=== PATIENT | male | born 1980 | race Caucasian/White ===

== ENCOUNTER 2024-04-20 15:07 | Emergency (ER) | payer OTHER, SELFPAY ==
[2024-04-20 15:10] VITALS: BP 159/93; PULSE 93; RESP 16; TEMP 37.1; O2SAT 96; BMI 39.3
--- NOTE | 2024-04-20 15:34 | ED.GENADULT ---
HPI - General Adult General Date Seen: 04/20/24 Chief complaint: Laceration/Wound Stated complaint: laceration Dropped Steel on foot - work comp Time Seen by Provider: 04/20/24 15:08 Source: patient Mode of arrival: ambulatory Limitations: no limitations History of Present Illness HPI narrative: Patient is a 43-year-old male who was at work, he dropped a large metal object which appears to his work boot and cut the top of his left foot. He is not sure when his last tetanus was, he thinks it has ?been a while. He has no complaints of loss of function or numbness. No bony tenderness or difficulty walking. Related Data Home Medications ?Medication ?Instructions ?Recorded ?Confirmed aspirin 81 mg tablet,delayed 81 mg PO DAILY 04/20/24 04/20/24 release (Adult Aspirin Regimen) atorvastatin 40 mg tablet 40 mg PO DAILY 04/20/24 04/20/24 benazepril 20 1 tab PO DAILY 04/20/24 04/20/24 mg-hydrochlorothiazide 25 mg tablet empagliflozin 10 mg tablet 10 mg PO DAILY 04/20/24 04/20/24 levothyroxine 150 mcg capsule 150 mcg PO DAILY 04/20/24 04/20/24 metformin 1,000 mg tablet 1,000 mg PO DAILY 04/20/24 04/20/24 metoprolol succinate 50 mg 50 mg PO DAILY 04/20/24 04/20/24 tablet,extended release 24 hr Allergies Allergy/AdvReac Type Severity Reaction Status Date / Time shrimp Allergy Severe Anaphylaxis Verified 04/20/24 15:17 latex Allergy Mild Rash Verified 04/20/24 15:17 PFSH PFS Social History Smoking Status: Never smoker How often do you have a drink containing alcohol: never AUDIT-C Alcohol total score: 0 Non-prescribed substance use: denies use service: No Exam Narrative: Exam Narrative: Vital signs reviewed In general, alert, well-appearing male. Extremities: Examination of the left foot shows a small, T shaped laceration over the dorsum of the foot. Some venous bleeding is noted. Total length of laceration is approximately 1 cm. He has full flexion extension of his toes, sensation is normal. Skin otherwise intact. No bony tenderness, bruising or swelling. Const: Vital Signs, click to edit/add: Vital Signs - 24 hr 04/20/24 15:10 Temperature 98.7 F Pulse Rate [Pulse Oximeter] 93 Respiratory Rate 16 Blood Pressure [Ri ght Upper Arm] 159/93 H Pulse Oximetry 96 Oxygen Delivery Me thod Room Air Documenting provider has reviewed patient's vital signs: yes Course Course ED Course: Procedure note: The wound was anesthetized using lidocaine with epinephrine and explored without evidence of foreign body. I used 4-[address] 3 simple interrupted superficial sutures. She tolerated this well without immediate complication. Dressing applied by the nurse. We will look in to his tetanus status and update if needed. Recommend suture removal in 7-10 days, return for signs of infection. Vital Signs Vital signs: Initial Vital Signs Temperature 98.7 F 04/20/24 15:10 Temperature Source Temporal Artery Scan 04/20/24 15:10 Pulse Rate 93 04/20/24 15:10 Pulse Rhythm Regular 04/20/24 15:10 Pulse Strength 3+ Normal 04/20/24 15:10 Respiratory Rate 16 04/20/24 15:10 Blood Pressure 159/93 H 04/20/24 15:10 Blood Pressure Mean 115 H 04/20/24 15:10 Blood Pressure Position Sitting 04/20/24 15:10 Pulse Oximetry 96 04/20/24 15:10 Oxygen Delivery Method Room Air 04/20/24 15:10 Vital Signs Temperature 98.7 F 04/20/24 15:10 Pulse Rate 93 04/20/24 15:10 Respiratory Rate 16 04/20/24 15:10 Blood Pressure 159/93 H 04/20/24 15:10 Pulse Oximetry 96 04/20/24 15:10 Oxygen Delivery Method Room Air 04/20/24 15:10 Temperature 98.7 F 04/20/24 15:10 Pulse Rate 93 04/20/24 15:10 Respiratory Rate 16 04/20/24 15:10 Blood Pressure 159/93 H 04/20/24 15:10 Pulse Oximetry 96 04/20/24 15:10 Oxygen Delivery Method Room Air 04/20/24 15:10 Discharge Plan Discharge Clinical Impression: Foot laceration Patient Disposition: Home, Self-Care Condition: Improved Instructions: Laceration (ED) Additional Instructions: Suture removal in about 7-10 days. Return any time for signs of infection. Ibuprofen or Tylenol if needed. Prescriptions: No Action aspirin [Adult Aspirin Regimen] 81 mg tablet,delayed release (DR/EC) 81 mg PO DAILY atorvastatin 40 mg tablet 40 mg PO DAILY benazepril-hydrochlorothiazide 20-25 mg tablet 1 tab PO DAILY empagliflozin 10 mg tablet 10 mg PO DAILY levothyroxine 150 mcg capsule 150 mcg PO DAILY metformin 1,000 mg tablet 1,000 mg PO DAILY metoprolol succinate 50 mg tablet extended release 24 hr 50 mg PO DAILY Stand Alone Forms: MyHealth Info Instructions
== END 2024-04-20 15:55 | disposition home or self-care (01) ==
LOC: ED 15:57
PROVIDERS: Emergency Provider Emergency Medicine
DX: S91.312A Laceration without foreign body, left foot, initial encounter (principal); W26.9XXA Contact with unspecified sharp object(s), initial encounter
CPT/HCPCS: 12001; 99283